=== PATIENT | female | born 1955 | race Caucasian/White ===

== ENCOUNTER 2020-08-06 06:14 | Emergency (ER) | payer MEDICARE, SELFPAY ==
--- NOTE | ~2020-08-06 | CT_ITS ---
EXAMINATION: CT cervical spine wo con DATE: 08/06/2020 07:51 INDICATION: Transient alteration of awareness TECHNIQUE: Computed tomography (CT) of the cervical spine was performed without intravenous contrast. The dose-length product (DLP) was 557.66 mGy-cm. Automated exposure control and iterative reconstruc tion technique were employed. COMPARISON: None FINDINGS: There is no fracture. The vertebral body heights and alignment are maintained. There is mod erate loss of intervertebral disc space height at C5-6 and C6-7. The odontoid is intact. Small degene rative osteophytes project from the anterior endplates of multiple vertebral bodies. The prevertebral soft tissues are normal. IMPRESSION: 1. Moderate cervical spondylosis without acute findings. Reviewed, dictated and finalized at location A.
--- NOTE | ~2020-08-06 | CT_ITS ---
EXAMINATION: CT brain wo con INDICATION: Head injury COMPARISON: None TECHNIQUE: Standard unenhanced head CT. The dose-length product (DLP) was 605.33 mGy-cm. The mA was a djusted according to patient size. Iterative reconstruction technique was employed. FINDINGS: There is no acute intraparenchymal hemorrhage. No evidence of mass lesion. No evidence of a cute infarction. There is mild periventricular and subcortical hypodensity probably related to small vessel ischemic disease. There is mild prominence of the sulci and ventricles related to cerebral atr ophy. Intracranial calcified cerebral atherosclerosis is noted. There are no extra-axial collections. There is no mass effect or midline shift. The orbits and soft tissues are unremarkable. The visuali zed sinuses and mastoid air cells are well aerated. IMPRESSION: 1. No acute intracranial abnormality. 2. Age related findings. Reviewed, dictated and finalized at location A.
[2020-08-06 06:30] VITALS: BP 104/60; PULSE 78; RESP 16; TEMP 36.6; O2SAT 96
--- NOTE | 2020-08-06 06:32 | ED.NEUROSD ---
HPI - Neuro Symptoms/Deficit General Chief Complaint: Suspected CVA Stated Complaint: STROKE Time Seen by Provider: 08/06/20 06:30 Source: patient and EMS Limitations: altered mental status History of Present Illness HPI Narrative: Patient is brought in by EMS after having fallen on the floor, at 520am. She was seen by the and did not seem to be moving her right arm well. He called 911 to have her brought in. She is not able to respond to us, and appears to have diffuse weakness of both arms and legs with only minimal tone in the right arm. Timing confirmed by: spouse Severity: severe Quality: weak Relieving factors: none Exacerbating factors: none Context: sudden onset On Anticoagulants: No Review of Systems Constitutional: Constitutional: Reports no additional constitutional complaints Eyes: Eyes: Reports no additional eye complaints ENT: Reports system reviewed and no additional complaints, except as documented Cardiovascular: Cardiovascular: Reports no additional cardiovascular complaints Respiratory: Respiratory: Reports no additional respiratory complaints Gastrointestinal: Gastrointestinal: Reports no additional gastrointestinal complaints Genitourinary: Genitourinary: Reports no additional female genitourinary complaints Musculoskeletal: Musculoskeletal: Reports no additional musculoskeletal complaints Integumentary/Breasts: Skin/Breast: Reports system reviewed and no additional complaints, except as docu Neurologic: Reports system reviewed and no additional complaints, except as documented Psychiatric: Psychiatric: Reports no additional psychiatric complaints Endocrine: Endocrine: Reports no additional endocrine complaints Hematologic/Lymphatic: Hematologic/Lymphatic: Reports no additional hematologic/lymphatic complaints Allergic/Immunologic: Allergic/Immunologic: Reports no additional allergic/immunologic complaints [facility] Past Medical History Medical History (Updated 08/06/20 @ 07:34 by Sahil Weaver MD) Hypertension Surgical History Surgical History (Updated 08/06/20 @ 07:01 by Sahil Weaver MD) No significant past surgical history Family History Family History (Updated 08/06/20 @ 07:01 by Sahil Weaver MD) Father Family history non-contributory Social History Social History (Updated 08/06/20 @ 07:01 by Sahil Weaver MD) Smoking status: Never smoker Living arrangements: with family Gender identity (if verbalized by the patient): Female Exam Const: General: cooperative Nutritional Appearance: average body habitus Orientation/consciousness: patient obtunded Limitations: altered mental status HENMT: Head: normal to inspection Ears: external ears normal General nose exam: Normal external nose present Face and sinus: normal facial exam and other (initially she appeared to have some facial drooping on the right) Mouth: Yes Normal oral and palatal mucosa present Eyes: General: appearance normal, both eyes and all related structures Conjunctivae: conjunctivae normal Sclera: sclerae normal Neck: Lymphatic: no lymphadenopathy noted Chest: Chest palpation & inspection: normal inspection of the chest Breast/axilla inspection: normal inspection of the breasts Resp: Effort & Inspection: normal respiratory effort Auscultation: clear to auscultation bilaterally Cardio: Rate: regular rate Rhythm: regular rhythm GI: Inspection: normal to inspection (soft non tender) Auscultation: other (decreased bowel sounds) Rectal Exam: deferred Skin: General skin exam: normal color Neuro: General: no focal motor deficits (some mild tone in left arm, otherwise flaccid in all extremities) and other (eyes deviated to left, neglects right side ) Cranial nerves: Yes Normal facial strength present (initial facial drrop on right, cannot follow commands) and Yes Other cranial nerve findings present (She appears obtunded and cannot respond to speech. ) Speech: Other speech findings
--- NOTE | 2020-08-06 06:47 | ECG_ITS ---
Measurements Intervals [place] Rate: 64 P: 30 FL: 215 QRS: 0 QRSD: 88 T: -5 QT: 410 QTc: 425 Interpretive Statements SINUS RHYTHM WITH FIRST DEGREE AV BLOCK CONSIDER INFERIOR INFARCT, AGE INDETERMINATE ST-T WAVE ABNORMALITY IN ANTERIOR LEADS- CONSIDER ISCHEMIA BASELINE ARTIFACT- I, II, AVR, AVL, AVF, V1, V4-V6 ABNORMAL ECG Electronically Signed On 08-07-2020 16:34:33 CDT by Lowell Miller D.O.
[2020-08-06 06:49] LABS: Basophils Absolute Auto 0.04 K/mm3 (0.00-0.10); Basophils Percent Auto 0.6 % (0.0-1.0); Eosinophils Absolute Auto 0.11 K/mm3 (0.02-0.50); Eosinophils Percent Auto 1.6 % (1.0-6.0); Hematocrit 41.1 % (35.0-42.0); Hemoglobin 13.5 g/dL (11.7-13.8); Immature Granulocyte Absolute 0.01 K/mm3 (0.00-0.00); Immature Granulocyte Percent A 0.1 % (0.0-0.0); Lymphocytes Absolute Auto 3.81 K/mm3 (1.10-4.50); Lymphocytes Percent Auto 57.1 % (18.0-42.0); Mean Corpuscular HGB Conc 32.8 g/dL (32.0-36.0); Mean Corpuscular Volume 91.3 fL (78.0-102.0); Mean Platelet Volume 12.7 fl (9.2-11.8); Monocytes Absolute Auto 0.53 K/mm3 (0.10-0.90); Monocytes Percent Auto 7.9 % (2.0-11.0); Neutrophils Absolute Auto 2.2 K/mm3 (1.7-7.2); Neutrophils Percent Auto 32.7 % (50.0-70.0); Platelet Count Result 177 K/mm3 (150-420); Red Cell Distribution Width 12.7 % (11.6-14.4); White Blood Count 6.7 K/mm3 (4.8-10.8)
[2020-08-06 06:55] LABS: INR 0.9; Prothrombin Time 10.1 Seconds (9.50-12.10)
[2020-08-06 06:58] LABS: D Dimer 0.46 mg/L (0.19-0.50); Partial Thromboplastin Time 24.2 SEC (23.90-30.70)
[2020-08-06 07:00] VITALS: BP 120/70; PULSE 88; RESP 20; TEMP 36.6; O2SAT 90
[2020-08-06 07:01] LABS: Alanine Aminotransferase 32 U/L (14-59); Albumin Level 3.6 g/dL (3.4-5.0); Alkaline Phosphatase 66 U/L (46-116); Anion Gap 10 mmol/L (8-16); Aspartate Amino Transferase 20 U/L (15-37); Bilirubin,Total 0.4 mg/dL (0.00-1.00); Blood Urea Nitrogen 19 mg/dL (7-18); Calcium 9.1 mg/dL (8.5-10.1); Carbon Dioxide 25 mmol/L (21-32); Chloride 105 mmol/L (98-108); Estimated Glomerular Filt Rate > 60; Glucose 138 mg/dL (70-99); Osmolality Calculated 294 mOsm/kg (285-295); Potassium 3.8 mmol/L (3.5-5.1); Sodium 140 mmol/L (136-145); Total Protein 6.8 g/dL (6.4-8.2)
[2020-08-06 07:02] LABS: BNP 104 pg/mL (0-100)
--- NOTE | 2020-08-06 07:15 | PC.NURSE ---
[address] Angela clark [id number] accepted by [facility] 0701 [facility] called, accepted flight
[2020-08-06 07:20] VITALS: BP 128/80; PULSE 82; RESP 18; O2SAT 100
[2020-08-06 07:47] VITALS: BP 108/78; PULSE 78; RESP 18; O2SAT 96
--- NOTE | 2020-08-06 07:55 | PC.NURSE ---
0630 eyes open only to painful stimuli, not moving any extremity. 0700 moving Left arm, scratching face with left hand, does not follow commands. eyes deviate to left, right facial droop noted
[2020-08-06 07:57] VITALS: BP 140/88; PULSE 78; RESP 16; TEMP 36.6; O2SAT 99
--- NOTE | 2020-08-06 07:59 | PC.NURSE ---
0630 Monitor SR 0700 Monitor SR
== END 2020-08-06 07:38 | disposition short-term general hospital (02) ==
PROVIDERS: Emergency Provider Emergency Medicine
DX: I63.9 Cerebral infarction, unspecified (principal); I10 Essential (primary) hypertension
CPT/HCPCS: 36415; 70450; 72125; 80053; 83880; 84484; 85025; 85380; 85610; 85730; 93005; 99285